=== PATIENT | male | born 1980 | race Caucasian/White ===

== ENCOUNTER 2023-06-19 11:36 | Inpatient (IN) | payer OTHER, SELFPAY ==
[~2023-06-19 11:36] MED LIST: Iopamidol-370 76% 500 ML MDV (1 ML CHARGE) ONE
[2023-06-19] MEDS ORDERED: Ketorolac Tromethamine 30 MG/ML VIAL ONE (12:35)
[2023-06-19] MEDS ORDERED: Morphine 4 MG/ML VIAL ONE ×2 (12:35→14:32)
[2023-06-19] MEDS ORDERED: Ampicillin/Sulbactam 3 GM in Sodium Chloride 0.9% 100 ML IVPB SCH (12:45)
[2023-06-19 12:57] LABS: #Basophils 0.1 thou/uL (0.0-0.2); #Eosinphils 0.2 thou/uL (0.0-0.7); #Monocytes 1.3 thou/uL (0.11-0.59); #Neutrophils 10.6 thou/uL (1.40-6.50); %Basophils 0.4 % (0.0-1.0); %Eosinophils 1.1 % (0.0-10.0); %Lymphocytes 14.4 % (21.0-51.0); %Monocytes 9.4 % (0.0-10.0); %Neutrophils 74.3 % (42.0-75.0); Hematocrit 47.7 % (42.0-52.0); Hemoglobin 15.8 g/dL (14.0-18.0); Mean Corpuscular HGB CONC 33.1 g/dL (32.0-36.0); Mean Corpuscular Hemoglobin 30.9 pg (27.0-31.0); Mean Corpuscular Volume 93.3 fl (78.0-98.0); Mean Platelet Volume 11.7 fL (7.4-10.4); Platelet Count 214 10x3/uL (130-400); RBC Distribution Width 12.3 % (11.5-14.5); Red Blood Cell (RBC) Count 5.11 mill/uL (4.70-6.10); White Blood Cell (WBC) Count 14.2 10x3/uL (4.8-10.8)
[2023-06-19 13:20] LABS: ALT (SGPT) 15 U/L (8-55); AST (SGOT) 15 U/L (5-34); Albumin 4.3 g/dL (3.5-5.0); Alkaline Phosphatase 89 U/L (40-110); Anion Gap 17 mmol/L (10-20); BUN (Urea Nitrogen) 10 mg/dL (8.9-20.6); Bilirubin, Total 0.6 mg/dL (0.2-1.2); Calc. Creatinine Clearance 0 mL/min (70-130); Calcium 8.9 mg/dL (7.8-10.44); Carbon Dioxide 19 mmol/L (22-29); Chloride 107 mmol/L (98-107); Estimated GFR 114; Globulin 3.7 g/dL (2.4-3.5); Glucose 93 mg/dL (70-105); Potassium 3.9 mmol/L (3.5-5.1); Sodium 139 mmol/L (136-145)
[2023-06-19] MEDS ORDERED: VANCOMYCIN 2 GRAM/500 ML BAG 2 GM in Premix Bag 1 BAG IVPB SCH (14:00)
[2023-06-19] MEDS ORDERED: Lidocaine 1% w/Epinephrine 1:100K 20 ML VIAL ONE ×2 (14:32→14:34)
[2023-06-19 15:23] LABS: SARS-CoV-2 NAA Rapid Test Not Detected (NotDetected)
[2023-06-19] MEDS ORDERED: Ondansetron ODT 4 MG TAB PO PRN (16:50)
[2023-06-19] MEDS ORDERED: Ondansetron PF 4 MG/2 ML Vial IVP PRN (16:50)
[2023-06-19] MEDS: HYDROcodone/Acetaminophen 7.5/325 mg Tablet PO PRN ×2 (18:50→23:00)
[2023-06-19] MEDS: Lactated Ringer's 1,000 ML IV SCH (18:50)
[2023-06-19 18:53] VITALS: BMI 39.1
[2023-06-19] MEDS: Famotidine 20 MG TAB PO SCH (20:29)
[2023-06-19] MEDS: Cefepime 2 GM in Sodium Chloride 0.9% 100 ML IVPB SCH (20:29)
[2023-06-19] MEDS: Heparin 5,000 UNITS/ML VIAL SC SCH (20:29)
[2023-06-19] MEDS: Ketorolac Tromethamine 30 MG/ML VIAL IVP PRN (20:30)
[2023-06-19] MEDS ORDERED: BSS Opth Solution 15ml BOT EA EYE SCH (21:00)
[2023-06-19] MEDS: Fluticasone Propionate Nasal Spray 16 gm Bottle NASAL SCH (22:34)
[2023-06-19] MEDS: VANCOMYCIN 1.25 GM/250 ML BAG 1.25 GM in Premix Bag 1 BAG IVPB SCH (22:34)
[2023-06-19] MEDS: diphenhydrAMINE 25 MG CAP PO SCH (22:35)
[2023-06-20] MEDS: Acetaminophen 325 MG TAB PO PRN ×2 (02:58→17:52)
[2023-06-20] MEDS: Ketorolac Tromethamine 30 MG/ML VIAL IVP PRN ×3 (02:59→22:15)
[2023-06-20] MEDS: diphenhydrAMINE 25 MG CAP PO SCH ×3 (05:39→22:15)
[2023-06-20] MEDS: VANCOMYCIN 1.25 GM/250 ML BAG 1.25 GM in Premix Bag 1 BAG IVPB SCH (05:39)
[2023-06-20] MEDS: HYDROcodone/Acetaminophen 7.5/325 mg Tablet PO PRN ×3 (05:39→22:15)
[2023-06-20 06:43] LABS: #Basophils 0.1 thou/uL (0.0-0.2); #Eosinphils 0.2 thou/uL (0.0-0.7); #Monocytes 1.1 thou/uL (0.11-0.59); %Basophils 0.5 % (0.0-1.0); %Eosinophils 1.9 % (0.0-10.0); %Lymphocytes 17.7 % (21.0-51.0); %Monocytes 8.6 % (0.0-10.0); Hematocrit 42.9 % (42.0-52.0); Hemoglobin 14.3 g/dL (14.0-18.0); Mean Corpuscular HGB CONC 33.3 g/dL (32.0-36.0); Mean Corpuscular Hemoglobin 30.4 pg (27.0-31.0); Mean Corpuscular Volume 91.3 fl (78.0-98.0); Mean Platelet Volume 11.9 fL (7.4-10.4); Platelet Count 219 10x3/uL (130-400); White Blood Cell (WBC) Count 12.7 10x3/uL (4.8-10.8)
[2023-06-20] MEDS: Lactated Ringer's 1,000 ML IV SCH ×3 (06:56→20:10)
[2023-06-20 07:12] LABS: Anion Gap 11 mmol/L (10-20); BUN (Urea Nitrogen) 9 mg/dL (8.9-20.6); Calc. Creatinine Clearance 198 mL/min (70-130); Calcium 8.5 mg/dL (7.8-10.44); Carbon Dioxide 25 mmol/L (22-29); Chloride 106 mmol/L (98-107); Estimated GFR 115; Glucose 89 mg/dL (70-105); Sodium 138 mmol/L (136-145)
[2023-06-20] MEDS: Famotidine 20 MG TAB PO SCH ×2 (09:05→22:15)
[2023-06-20] MEDS: Cefepime 2 GM in Sodium Chloride 0.9% 100 ML IVPB SCH ×2 (09:05→22:14)
[2023-06-20] MEDS: Heparin 5,000 UNITS/ML VIAL SC SCH ×2 (09:06→22:15)
[2023-06-20] MEDS: Fluticasone Propionate Nasal Spray 16 gm Bottle NASAL SCH ×2 (09:11→22:14)
[2023-06-20] MEDS: Vancomycin 1.5 GRAM/300 ML BAG 1.5 GM in Premix Bag 1 BAG IVPB SCH ×2 (14:31→23:00)
[2023-06-20] MEDS: Morphine 4 MG/ML VIAL SLOW IVP PRN ×2 (17:52→23:07)
[2023-06-21] MEDS: HYDROcodone/Acetaminophen 7.5/325 mg Tablet PO PRN ×4 (04:15→23:12)
[2023-06-21] MEDS: Ketorolac Tromethamine 30 MG/ML VIAL IVP PRN ×2 (04:15→12:26)
[2023-06-21] MEDS: Vancomycin 1.5 GRAM/300 ML BAG 1.5 GM in Premix Bag 1 BAG IVPB SCH ×3 (05:40→22:52)
[2023-06-21] MEDS: Morphine 4 MG/ML VIAL SLOW IVP PRN ×3 (05:40→21:36)
[2023-06-21] MEDS: diphenhydrAMINE 25 MG CAP PO SCH ×3 (05:40→21:38)
[2023-06-21 08:03] LABS: #Eosinphils 0.2 thou/uL (0.0-0.7); #Monocytes 1.2 thou/uL (0.11-0.59); #Neutrophils 7.1 thou/uL (1.40-6.50); %Basophils 0.4 % (0.0-1.0); %Monocytes 10.8 % (0.0-10.0); %Neutrophils 64.5 % (42.0-75.0); Hematocrit 41.7 % (42.0-52.0); Hemoglobin 13.9 g/dL (14.0-18.0); Mean Corpuscular HGB CONC 33.3 g/dL (32.0-36.0); Mean Corpuscular Hemoglobin 30.8 pg (27.0-31.0); Mean Corpuscular Volume 92.3 fl (78.0-98.0); Platelet Count 224 10x3/uL (130-400); RBC Distribution Width 12.1 % (11.5-14.5); Red Blood Cell (RBC) Count 4.52 mill/uL (4.70-6.10)
[2023-06-21 08:19] LABS: Anion Gap 12 mmol/L (10-20); BUN (Urea Nitrogen) 8 mg/dL (8.9-20.6); Calc. Creatinine Clearance 198 mL/min (70-130); Calcium 8.3 mg/dL (7.8-10.44); Carbon Dioxide 26 mmol/L (22-29); Chloride 105 mmol/L (98-107); Estimated GFR 115; Glucose 90 mg/dL (70-105); Potassium 3.8 mmol/L (3.5-5.1); Sodium 139 mmol/L (136-145)
[2023-06-21] MEDS: Cefepime 2 GM in Sodium Chloride 0.9% 100 ML IVPB SCH ×2 (08:39→21:39)
[2023-06-21] MEDS: Famotidine 20 MG TAB PO SCH ×2 (08:41→21:38)
[2023-06-21] MEDS: Heparin 5,000 UNITS/ML VIAL SC SCH ×2 (08:42→21:39)
[2023-06-21] MEDS: Fluticasone Propionate Nasal Spray 16 gm Bottle NASAL SCH ×2 (08:46→21:40)
[2023-06-21] MEDS: Lactated Ringer's 1,000 ML IV SCH (09:50)
[2023-06-21] MEDS: Acetaminophen 325 MG TAB PO PRN ×2 (10:45→17:19)
[2023-06-21 13:08] LABS: Vancomycin, Trough 14.5 ug/mL
[2023-06-21] MEDS ORDERED: Mupirocin 2% Ointment 22 GM Tube TOP SCH (13:30)
[2023-06-21] MEDS: Ketorolac Tromethamine 30 MG/ML VIAL IVP SCH ×2 (17:20→23:11)
[2023-06-21] MEDS: Senokot S 8.6-50 MG TAB PO PRN (21:38)
[2023-06-21] MEDS: Mupirocin 2% Ointment 22 GM Tube TOP SCH (21:40)
[2023-06-22] MEDS: Lactated Ringer's 1,000 ML IV SCH ×2 (02:36→13:19)
[2023-06-22] MEDS: Ketorolac Tromethamine 30 MG/ML VIAL IVP SCH ×3 (05:11→18:34)
[2023-06-22] MEDS: diphenhydrAMINE 25 MG CAP PO SCH ×3 (05:12→21:28)
[2023-06-22] MEDS: Vancomycin 1.5 GRAM/300 ML BAG 1.5 GM in Premix Bag 1 BAG IVPB SCH ×3 (05:12→21:27)
[2023-06-22 06:47] LABS: #Basophils 0.1 thou/uL (0.0-0.2); #Eosinphils 0.4 thou/uL (0.0-0.7); #Neutrophils 5.8 thou/uL (1.40-6.50); %Basophils 0.6 % (0.0-1.0); %Eosinophils 4.6 % (0.0-10.0); %Lymphocytes 19.5 % (21.0-51.0); %Monocytes 10.6 % (0.0-10.0); %Neutrophils 64.4 % (42.0-75.0); Hematocrit 39.7 % (42.0-52.0); Hemoglobin 13.3 g/dL (14.0-18.0); Mean Corpuscular HGB CONC 33.5 g/dL (32.0-36.0); Mean Corpuscular Hemoglobin 31.1 pg (27.0-31.0); Mean Corpuscular Volume 92.8 fl (78.0-98.0); Mean Platelet Volume 11.5 fL (7.4-10.4); Platelet Count 245 10x3/uL (130-400); Red Blood Cell (RBC) Count 4.28 mill/uL (4.70-6.10)
[2023-06-22 07:11] LABS: Anion Gap 12 mmol/L (10-20); BUN (Urea Nitrogen) 8 mg/dL (8.9-20.6); Calc. Creatinine Clearance 195 mL/min (70-130); Calcium 8.5 mg/dL (7.8-10.44); Carbon Dioxide 24 mmol/L (22-29); Chloride 105 mmol/L (98-107); Estimated GFR 114; Glucose 89 mg/dL (70-105); Potassium 4.1 mmol/L (3.5-5.1); Sodium 137 mmol/L (136-145)
[2023-06-22] MEDS: Cefepime 2 GM in Sodium Chloride 0.9% 100 ML IVPB SCH ×2 (08:36→21:28)
[2023-06-22] MEDS: Famotidine 20 MG TAB PO SCH ×2 (08:37→21:28)
[2023-06-22] MEDS: Heparin 5,000 UNITS/ML VIAL SC SCH ×2 (08:37→21:28)
[2023-06-22] MEDS: Fluticasone Propionate Nasal Spray 16 gm Bottle NASAL SCH ×2 (08:37→21:29)
[2023-06-22] MEDS: Mupirocin 2% Ointment 22 GM Tube TOP SCH ×2 (08:37→21:29)
[2023-06-22] MEDS: Morphine 4 MG/ML VIAL SLOW IVP PRN ×2 (08:40→21:33)
[2023-06-22] MEDS: HYDROcodone/Acetaminophen 7.5/325 mg Tablet PO PRN (18:32)
[2023-06-23] MEDS: Ketorolac Tromethamine 30 MG/ML VIAL IVP SCH (00:35)
[2023-06-23] MEDS: Lactated Ringer's 1,000 ML IV SCH ×2 (01:49→15:10)
[2023-06-23] MEDS: HYDROcodone/Acetaminophen 7.5/325 mg Tablet PO PRN ×3 (03:57→22:35)
[2023-06-23] MEDS: diphenhydrAMINE 25 MG CAP PO SCH ×3 (06:07→22:36)
[2023-06-23] MEDS: Vancomycin 1.5 GRAM/300 ML BAG 1.5 GM in Premix Bag 1 BAG IVPB SCH ×3 (06:07→22:36)
[2023-06-23 06:51] LABS: #Basophils 0.1 thou/uL (0.0-0.2); #Eosinphils 0.6 thou/uL (0.0-0.7); #Monocytes 0.8 thou/uL (0.11-0.59); #Neutrophils 3.6 thou/uL (1.40-6.50); %Basophils 0.7 % (0.0-1.0); %Eosinophils 8.6 % (0.0-10.0); %Lymphocytes 26.9 % (21.0-51.0); %Neutrophils 51.4 % (42.0-75.0); Hematocrit 42.3 % (42.0-52.0); Hemoglobin 13.9 g/dL (14.0-18.0); Mean Corpuscular HGB CONC 32.9 g/dL (32.0-36.0); Mean Corpuscular Hemoglobin 30.6 pg (27.0-31.0); Mean Corpuscular Volume 93.2 fl (78.0-98.0); Mean Platelet Volume 11.7 fL (7.4-10.4); Platelet Count 254 10x3/uL (130-400); RBC Distribution Width 11.9 % (11.5-14.5); Red Blood Cell (RBC) Count 4.54 mill/uL (4.70-6.10)
[2023-06-23 07:12] LABS: Anion Gap 10 mmol/L (10-20); BUN (Urea Nitrogen) 11 mg/dL (8.9-20.6); Calc. Creatinine Clearance 185 mL/min (70-130); Calcium 8.6 mg/dL (7.8-10.44); Carbon Dioxide 25 mmol/L (22-29); Chloride 106 mmol/L (98-107); Estimated GFR 113; Glucose 85 mg/dL (70-105); Potassium 4.2 mmol/L (3.5-5.1); Sodium 137 mmol/L (136-145)
[2023-06-23] MEDS: Famotidine 20 MG TAB PO SCH ×2 (09:56→20:21)
[2023-06-23] MEDS: Cefepime 2 GM in Sodium Chloride 0.9% 100 ML IVPB SCH ×2 (09:56→20:22)
[2023-06-23] MEDS: Heparin 5,000 UNITS/ML VIAL SC SCH ×2 (09:57→20:22)
[2023-06-23] MEDS: Mupirocin 2% Ointment 22 GM Tube TOP SCH ×2 (09:57→20:22)
[2023-06-23] MEDS: Fluticasone Propionate Nasal Spray 16 gm Bottle NASAL SCH (09:57)
[2023-06-23] MEDS: Morphine 4 MG/ML VIAL SLOW IVP PRN ×2 (10:17→18:48)
[2023-06-24] MEDS: diphenhydrAMINE 25 MG CAP PO SCH ×3 (05:22→21:07)
[2023-06-24] MEDS: Lactated Ringer's 1,000 ML IV SCH ×2 (05:22→16:27)
[2023-06-24] MEDS: Vancomycin 1.5 GRAM/300 ML BAG 1.5 GM in Premix Bag 1 BAG IVPB SCH (05:22)
[2023-06-24] MEDS: Morphine 4 MG/ML VIAL SLOW IVP PRN ×4 (05:27→21:06)
[2023-06-24 08:28] LABS: #Basophils 0.1 thou/uL (0.0-0.2); #Eosinphils 0.5 thou/uL (0.0-0.7); #Monocytes 0.9 thou/uL (0.11-0.59); #Neutrophils 4.2 thou/uL (1.40-6.50); %Basophils 0.8 % (0.0-1.0); %Eosinophils 7.2 % (0.0-10.0); %Monocytes 11.5 % (0.0-10.0); %Neutrophils 57.1 % (42.0-75.0); Hematocrit 46.9 % (42.0-52.0); Mean Corpuscular HGB CONC 34.1 g/dL (32.0-36.0); Mean Corpuscular Hemoglobin 30.9 pg (27.0-31.0); Mean Corpuscular Volume 90.7 fl (78.0-98.0); Mean Platelet Volume 11.3 fL (7.4-10.4); Platelet Count 321 10x3/uL (130-400); RBC Distribution Width 11.8 % (11.5-14.5); Red Blood Cell (RBC) Count 5.17 mill/uL (4.70-6.10); White Blood Cell (WBC) Count 7.4 10x3/uL (4.8-10.8)
[2023-06-24] MEDS: HYDROcodone/Acetaminophen 7.5/325 mg Tablet PO PRN (08:33)
[2023-06-24] MEDS: Senokot S 8.6-50 MG TAB PO PRN (08:33)
[2023-06-24] MEDS: Heparin 5,000 UNITS/ML VIAL SC SCH ×2 (08:34→21:10)
[2023-06-24] MEDS: Cefepime 2 GM in Sodium Chloride 0.9% 100 ML IVPB SCH (08:34)
[2023-06-24] MEDS: Mupirocin 2% Ointment 22 GM Tube TOP SCH ×2 (08:34→21:07)
[2023-06-24] MEDS: Famotidine 20 MG TAB PO SCH ×2 (08:34→21:07)
[2023-06-24 08:49] LABS: Anion Gap 3 mmol/L (10-20); BUN (Urea Nitrogen) 10 mg/dL (8.9-20.6); Calc. Creatinine Clearance 195 mL/min (70-130); Calcium 9.1 mg/dL (7.8-10.44); Carbon Dioxide 23 mmol/L (22-29); Chloride 110 mmol/L (98-107); Estimated GFR 114; Glucose 82 mg/dL (70-105); Potassium 3.9 mmol/L (3.5-5.1); Sodium 132 mmol/L (136-145)
[2023-06-24] MEDS ORDERED: Vancomycin 1.5 GRAM/300 ML BAG 1.5 GM in Premix Bag 1 BAG IVPB SCH (14:00)
[2023-06-24] MEDS: Sulfameth/Trimethoprim DS 800-160mg TAB PO SCH (21:07)
[2023-06-25] MEDS: HYDROcodone/Acetaminophen 7.5/325 mg Tablet PO PRN ×2 (02:12→08:21)
[2023-06-25] MEDS: Morphine 4 MG/ML VIAL SLOW IVP PRN ×4 (05:34→21:06)
[2023-06-25] MEDS: diphenhydrAMINE 25 MG CAP PO SCH ×3 (05:34→21:06)
[2023-06-25] MEDS: Lactated Ringer's 1,000 ML IV SCH ×2 (05:35→21:06)
[2023-06-25 06:16] LABS: #Basophils 0.1 thou/uL (0.0-0.2); #Eosinphils 0.6 thou/uL (0.0-0.7); #Monocytes 0.8 thou/uL (0.11-0.59); #Neutrophils 3.8 thou/uL (1.40-6.50); %Eosinophils 7.3 % (0.0-10.0); %Lymphocytes 31.5 % (21.0-51.0); %Monocytes 10.3 % (0.0-10.0); %Neutrophils 49.2 % (42.0-75.0); Hematocrit 48.3 % (42.0-52.0); Hemoglobin 15.7 g/dL (14.0-18.0); Mean Corpuscular HGB CONC 32.5 g/dL (32.0-36.0); Mean Corpuscular Hemoglobin 30.3 pg (27.0-31.0); Mean Corpuscular Volume 93.2 fl (78.0-98.0); Mean Platelet Volume 11.3 fL (7.4-10.4); Platelet Count 333 10x3/uL (130-400); RBC Distribution Width 11.9 % (11.5-14.5); Red Blood Cell (RBC) Count 5.18 mill/uL (4.70-6.10); White Blood Cell (WBC) Count 7.6 10x3/uL (4.8-10.8)
[2023-06-25 06:50] LABS: Anion Gap 14 mmol/L (10-20); BUN (Urea Nitrogen) 11 mg/dL (8.9-20.6); Calc. Creatinine Clearance 168 mL/min (70-130); Calcium 9.1 mg/dL (7.8-10.44); Carbon Dioxide 24 mmol/L (22-29); Chloride 102 mmol/L (98-107); Estimated GFR 109; Glucose 82 mg/dL (70-105); Potassium 4.4 mmol/L (3.5-5.1); Sodium 136 mmol/L (136-145)
[2023-06-25] MEDS: Famotidine 20 MG TAB PO SCH ×2 (08:21→21:06)
[2023-06-25] MEDS: Mupirocin 2% Ointment 22 GM Tube TOP SCH ×2 (08:22→21:06)
[2023-06-25] MEDS: Heparin 5,000 UNITS/ML VIAL SC SCH ×2 (08:22→21:19)
[2023-06-25] MEDS: Sulfameth/Trimethoprim DS 800-160mg TAB PO SCH ×2 (08:22→21:06)
[2023-06-25] MEDS: Senokot S 8.6-50 MG TAB PO PRN (15:41)
[2023-06-25] MEDS ORDERED: Lidocaine 1% (PF) 30 ML VIAL ONE (17:03)
[2023-06-26] MEDS: Morphine 4 MG/ML VIAL SLOW IVP PRN ×2 (01:14→05:31)
[2023-06-26] MEDS: HYDROcodone/Acetaminophen 7.5/325 mg Tablet PO PRN ×2 (03:19→08:54)
[2023-06-26] MEDS: diphenhydrAMINE 25 MG CAP PO SCH ×2 (05:33→13:26)
[2023-06-26 07:55] LABS: #Basophils 0.1 thou/uL (0.0-0.2); #Eosinphils 0.6 thou/uL (0.0-0.7); #Monocytes 0.7 thou/uL (0.11-0.59); %Basophils 1.1 % (0.0-1.0); %Eosinophils 7.9 % (0.0-10.0); %Lymphocytes 37.2 % (21.0-51.0); %Monocytes 10.2 % (0.0-10.0); %Neutrophils 42.9 % (42.0-75.0); Hematocrit 48.7 % (42.0-52.0); Mean Corpuscular HGB CONC 32.9 g/dL (32.0-36.0); Mean Corpuscular Hemoglobin 30.6 pg (27.0-31.0); Mean Corpuscular Volume 93.1 fl (78.0-98.0); Mean Platelet Volume 11.1 fL (7.4-10.4); Platelet Count 349 10x3/uL (130-400); RBC Distribution Width 11.9 % (11.5-14.5); Red Blood Cell (RBC) Count 5.23 mill/uL (4.70-6.10); White Blood Cell (WBC) Count 7.1 10x3/uL (4.8-10.8)
[2023-06-26 08:08] LABS: Anion Gap 9 mmol/L (10-20); BUN (Urea Nitrogen) 13 mg/dL (8.9-20.6); Calc. Creatinine Clearance 147 mL/min (70-130); Calcium 9.3 mg/dL (7.8-10.44); Carbon Dioxide 25 mmol/L (22-29); Chloride 105 mmol/L (98-107); Estimated GFR 95; Glucose 90 mg/dL (70-105); Potassium 4.1 mmol/L (3.5-5.1); Sodium 135 mmol/L (136-145)
[2023-06-26] MEDS: Sulfameth/Trimethoprim DS 800-160mg TAB PO SCH (08:54)
[2023-06-26] MEDS: Famotidine 20 MG TAB PO SCH (08:54)
[2023-06-26] MEDS: Heparin 5,000 UNITS/ML VIAL SC SCH (08:55)
[2023-06-26] MEDS: Mupirocin 2% Ointment 22 GM Tube TOP SCH (08:59)
[2023-06-26] MEDS: Lactated Ringer's 1,000 ML IV SCH (12:11)
[2023-06-26 14:05] VITALS: BP 136/91; TEMP 98.2
== END 2023-06-26 14:06 | DRG 872 ==
LOC: EEVIPCON 11:36 → ERS 11:36 → T4-B 15:32
PROVIDERS: ADMIT Hospitalist; ATTEND Internal Medicine Critical Care Medicine
PROC: 3E03329 Introduction of Other Anti-infective into Peripheral Vein, Percutaneous Approach (ICD-10-PCS; 2023-06-19)
PROC: 09JK8ZZ Inspection of Nasal Mucosa and Soft Tissue, Via Natural or Artificial Opening Endoscopic (ICD-10-PCS; principal; 2023-06-22)
PROC: 099K0ZZ Drainage of Nasal Mucosa and Soft Tissue, Open Approach (ICD-10-PCS; 2023-06-22)
PROC: 099K0ZZ Drainage of Nasal Mucosa and Soft Tissue, Open Approach (ICD-10-PCS; 2023-06-25)
DX: A41.9 Sepsis, unspecified organism (principal); E87.20 Acidosis, unspecified; L03.211 Cellulitis of face; J34.0 Abscess, furuncle and carbuncle of nose; D72.829 Elevated white blood cell count, unspecified; G43.909 Migraine, unspecified, not intractable, without status migrainosus; F31.9 Bipolar disorder, unspecified; Z20.822 Contact with and (suspected) exposure to COVID-19; Z82.49 Family history of ischemic heart disease and other diseases of the circulatory system; Z87.891 Personal history of nicotine dependence
CPT/HCPCS: 36415; 70487; 80048; 80053; 80202; 83605; 85025; 87040; 87070; 87077; 87081; 87186; 87205; 96361; 96365; 96366; 96367; 96375; 96376; J0295; J0692; J1644; J1885; J2270; J2405; J3370; J3490; J7120; Q0162; Q9967; U0002